=== PATIENT | male | born 2000 | race Caucasian/White ===

== ENCOUNTER 2020-09-30 11:55 | Emergency (ER) | payer SELFPAY ==
[2020-09-30] MEDS ORDERED: Ondansetron 4 MG/2 ML SDV IVPUSH ONE (12:33)
[2020-09-30] MEDS ORDERED: Sodium Chloride 0.9% 10 ML Syringe FLUSH PRN (12:33)
[2020-09-30] MEDS ORDERED: HYDROmorphone 0.5 MG/0.5 ML Syringe IVPUSH ONE ×2 (12:33→15:12)
[2020-09-30] MEDS ORDERED: diphenhydrAMINE 50 MG/ML SDV IVPUSH ONE (13:38)
[2020-09-30] MEDS ORDERED: Famotidine 20 MG/2 ML SDV IVPUSH ONE (13:38)
[2020-09-30] MEDS ORDERED: Piperacillin/Tazobactam 4.5 GM in Sodium Chloride 0.9% 100 ML IV ONE (15:13)
--- NOTE | 2020-09-30 16:19 | EDM.PDOC ---
ED HPI GENERAL MEDICAL PROBLEM - General Chief Complaint: Skin Complaint Stated Complaint: FACIAL ABSCESS SENT BY OLDEN Time Seen by Provider: 09/30/20 12:22 Source of Information: Reports: Patient, RN Notes Reviewed History Limitations: Reports: No Limitations - History of Present Illness INITIAL COMMENTS - FREE TEXT/NARRATIVE: Patient is a 20-year-old male presenting to the emergency department from [facility] with concerns of possible abscess to his upper lip. Patient was stung by a bee eczema 2 days ago in the upper lip. He was seen in the walk-in clinic on that day started on prednisone and cephalexin. He presented today with worsening symptoms. Pain and swelling is now extending into the bilateral cheeks. Also reports pain in his nose. He denies any known fever, however in triage she did have a low-grade fever of 100.3. He has no chronic medical conditions. He reports he did take his prednisone and cephalexin this morning. Treatments AIR CARGO AGENT: Reports: Other (see below) Other Treatments AIR CARGO AGENT: antibiotic Face/Facial Pain Score (Numeric/FACES): 10 - Related Data Allergies Allergy/AdvReac Type Severity Reaction Status Date / Time No Known Allergies Allergy Verified 09/30/20 12:26 Home Meds: Home Meds cephALEXin [Cephalexin] 500 mg PO TID 09/30/20 [History] Past Medical History - Past Health History Medical/Surgical History: Denies Medical/Surgical History Social & Family History - Tobacco Use Tobacco Use Status *Q: Never Tobacco User - Caffeine Use Caffeine Use: Reports: Tea - Recreational Drug Use Recreational Drug Use: No ED ROS GENERAL - Review of Systems Review Of Systems: See Below Constitutional: Denies: Fever HEENT: Reports: Other (Upper lip pain and swelling) Respiratory: Reports: No Symptoms. Denies: Shortness of Breath, Wheezing Cardiovascular: Reports: No Symptoms Endocrine: Reports: No Symptoms GI/Abdominal: Reports: No Symptoms. Denies: Nausea, Vomiting : Reports: No Symptoms Musculoskeletal: Reports: No Symptoms Skin: Reports: Other (Diffuse swelling of the upper lip. Scab to upper lip..) Neurological: Reports: No Symptoms Psychiatric: Reports: No Symptoms Hematologic/Lymphatic: Reports: No Symptoms Immunologic: Reports: No Symptoms ED EXAM, SKIN/RASH Exam: See Below Exam Limited By: No Limitations General Appearance: Alert, Mild Distress Throat/Mouth: Other (Diffuse edema of the upper lip extending into the bilateral cheeks. Small scab on the lip where he was stung. No drainage.) Respiratory/Chest: No Respiratory Distress, Lungs Clear, Normal Breath Sounds, No Accessory Muscle Use, Chest Non-Tender Cardiovascular: Normal Peripheral Pulses, Regular Rate, Rhythm, No Edema, No Gallop, No JVD, No Murmur, No Rub Neurological: Alert, Oriented, CN II-XII Intact, Normal Cognition, Normal Gait, Normal Reflexes, No Motor/Sensory Deficits Psychiatric: Normal Affect, Normal Mood Course - Vital Signs Last Recorded V/S: Last Vital Signs Temp 100.3 F 09/30/20 12:25 Pulse 81 09/30/20 12:25 Resp 20 09/30/20 12:25 BP 162/97 H 09/30/20 12:25 Pulse Ox 100 09/30/20 12:25 - Orders/Labs/Meds Labs: Laboratory Tests 09/30/20 09/30/20 09/30/20 Range/Units 13:20 13:20 15:14 WBC 16.25 H (4.23-9.07) K/mm3 RBC 4.70 (4.63-6.08) M/mm3 Hgb 15.2 (13.7-17.5) gm/dl Hct 43.7 (40.1-51.0) % MCV 93.0 H (79.0-92.2) fl MCH 32.3 H (25.7-32.2) pg MCHC 34.8 (32.2-35.5) g/dl RDW Std Deviation 42.1 (35.1-43.9) fL Plt Count 240 (163-337) K/mm3 MPV 9.6 (9.4-12.3) fl Neutrophils % (Manual) 54 (40-60) % Band Neutrophils % 2 (0-10) % Lymphocytes % (Manual) 30 (20-40) % Atypical Lymphs % 0 % Monocytes % (Manual) 14 H (2-10) % Eosinophils % (Manual) 0 L (0.8-7.0) % Basophils % (Manual) 0 L (0.2-1.2) Platelet Estimate Adequate Plt Morphology Comment Normal RBC Morph Comment Normal Sodium 144 (136-145) mEq/L Potassium 3.8 (3.5-5.1) mEq/L Chloride 105 (98-107) mEq/L Carbon Dioxide 29 (21-32) mEq/L Anion Gap 13.8 (5-15) BUN 10 (7-18) mg/dL Creatinine 1.0 (0.7-1.3) mg/dL Est Cr Clr Drug Dosing 115.48 mL/min Estimated GFR (MDRD) > 60 (>60) mL/min BUN/Creatinine Ratio 10.0 L (14-18) Glucose 91 (70-99) mg/dL Calcium 8.8 (8.5-10.1) mg/dL Total Bilirubin 0.7 (0.2-1.0) mg/dL AST 13 L (15-37) U/L ALT 23 (16-63) U/L Alkaline Phosphatase 95 (46-116) U/L C-Reactive Protein 4.5 H* (<1.0) mg/dL Total Protein 7.5 (6.4-8.2) g/dl Albumin 4.0 (3.4-5.0) g/dl Globulin 3.5 gm/dL Albumin/Globulin Ratio 1.1 (1-2) SARS-CoV-2 RNA (JONAS) Negative (NEGATIVE) Meds: Medications Discontinued Medications Generic Name Dose Route Start Last Admin Trade Name Freq PRN Reason Stop Dose Admin Diphenhydramine HCl 50 mg 09/30/20 13:38 09/30/20 13:46 Diphenhydramine 50 Mg/Ml Sdv IVPUSH 09/30/20 13:39 50 mg ONETIME ONE Administration Epinephrine HCl Confirm 10/01/20 15:02 Epinephrine 1:10,000 1 Mg/10 Ml Syringe Administered 10/01/20 15:03 Dose 4 mg .ROUTE .STK-MED ONE Famotidine 40 mg 09/30/20 13:38 09/30/20 13:46 Famotidine 20 Mg/2 Ml Sdv IVPUSH 09/30/20 13:39 40 mg ONETIME ONE Administration Hydromorphone HCl 0.5 mg 09/30/20 12:33 09/30/20 13:09 Hydromorphone 0.5 Mg/0.5 Ml Syringe IVPUSH 09/30/20 12:34 0.5 mg ONETIME ONE Administration Hydromorphone HCl 0.5 mg 09/30/20 15:12 09/30/20 15:33 Hydromorphone 0.5 Mg/0.5 Ml Syringe IVPUSH 09/30/20 15:13 0.5 mg ONETIME ONE Administration Piperacillin Sod/Tazobactam 100 mls @ 200 mls/hr 09/30/20 15:13 09/30/20 15:34 Sod 4.5 gm/ Sodium Chloride IV 09/30/20 15:42 200 mls/hr ONETIME ONE Administration Ondansetron HCl 4 mg 09/30/20 12:33 09/30/20 13:09 Ondansetron 4 Mg/2 Ml Sdv IVPUSH 09/30/20 12:34 4 mg ONETIME ONE Administration Sodium Chloride 10 ml 09/30/20 12:33 09/30/20 13:09 Sodium Chloride 0.9% 10 Ml Syringe FLUSH 10 ml ASDIRECTED PRN Administration Keep Vein Open - Re-Assessments/Exams Free Text/Narrative Re-Assessment/Exam: Patient is a 20-year-old male presenting to the emergency department with complaints of pain and swelling to his upper lip. He was stung by a bee 2 days ago. Provider at walk-in clinic was concerned that he could have abscess. I have ordered blood work, Dilaudid, Zofran, and CT maxillofacial without contrast. 09/30/[address] shows ischial cellulitis with diffuse soft tissue thickening involving the upper lip. No abscess identified. Also has acute on chronic maxillary sinus disease. Hematology was significant for WBC elevated 16.25 with no bandemia. CRP elevated 4.5. Patient did receive Benadryl and Pepcid in addition to the prednisone that he took this morning. There has been no improvement in his edema. Unfortunately did not have any beds available here in [place] for which to admit him for IV antibiotic therapy. Discussed option of possible outpatient antibiotic therapy, and patient his brother would prefer hospital admission for close observation. I ordered Zosyn IV to be given now as well as an additional dose of Dilaudid. Case was established with Dr. Rodrigues at [facility]. Once Zosyn infusion is complete, his IV will be wrapped and his brother will transfer him to [place] by private vehicle. Departure - Departure Time of Disposition: 15:30 Disposition: DC/Tfer to Acute Hospital 02 Condition: Good Clinical Impression: Facial cellulitis - Discharge Information Referrals: PCP,None [Primary Care Provider] - Forms: ED Department Discharge Sepsis Event Note (ED) - Evaluation Sepsis Screening Result: No Definite Risk
--- NOTE | 2020-10-01 09:22 | CT ---
CT facial bones Technique: Multiple axial sections through the facial bones were obtained. Reconstructed coronal and sagittal images were obtained. Intravenous contrast was not utilized. Comparison: No prior facial study is available. Findings: Mild mucosal thickening is seen within the left frontal sinus and ethmoid sinuses. Mild mucosal thickening is noted within both maxillary sinuses. Possible fluid within the right maxillary sinus. Soft tissue swelling is seen within the anterior facial structures inferior to the nose. This is felt compatible with diffuse cellulitis. No focal fluid collections are definitely seen to indicate abscess. Right and left globes are symmetric in size. No acute osseous abnormality is appreciated. Impression: 1. Findings within the paranasal sinuses as noted above which are suspicious for mild acute sinusitis superimposed upon chronic sinusitis. 2. Soft tissue swelling is noted anteriorly inferior to the nose compatible with diffuse cellulitis. 3. No fluid collections are seen to indicate definite abscess. No acute osseous abnormality is appreciated. Diagnostic code #3 I agree with preliminary report from [facility], finalized on 09/30/20, 2:17 PM CDT, code 1
[2020-10-01] MEDS ORDERED: EPINEPHrine 1:10,000 1 MG/10 ML Syringe ONE (15:02)
== END 2020-09-30 16:24 ==
LOC: JD.ED 11:55
DX: L03.211 Cellulitis of face (principal); Z20.822 Contact with and (suspected) exposure to COVID-19
CPT/HCPCS: 36415; 70486; 80053; 85007; 85027; 86140; 87635; 96365; 96375; 96376; 99284; J1170; J1200; J2405; J2543; J3490; U0002